=== PATIENT | male | born 1950 | race Hispanic/Latino ===

== ENCOUNTER → 2021-01-19 | Outpatient (CLI) | payer MEDICARE | END | disposition home or self-care (01) | LOC: RAH 10:59 | PROVIDERS: ATTEND Internal Medicine Cardiovascular Disease | DX: T82.110A Breakdown (mechanical) of cardiac electrode, initial encounter (principal); I51.7 Cardiomegaly; X58.XXXA Exposure to other specified factors, initial encounter; Z95.0 Presence of cardiac pacemaker | CPT/HCPCS: 71046 ==